=== PATIENT | female | born 1990 | race Caucasian/White ===

== ENCOUNTER → 2017-04-27 | Outpatient (CLI) | payer MEDICAID ==
[~2017-04-27] MED LIST: BUPR4MIS SL; PREN1CHW7 PO; ZOFR8TAB PO
== END ==
LOC: HPND 10:19
PROVIDERS: ATTEND Obstetrics & Gynecology
DX: O44.02 Complete placenta previa NOS or without hemorrhage, second trimester (principal); O99.322 Drug use complicating pregnancy, second trimester; O09.32 Supervision of pregnancy with insufficient antenatal care, second trimester
CPT/HCPCS: 76811; 76817

== ENCOUNTER → 2017-04-28 | Day surgery (SDC) | payer MEDICAID ==
--- NOTE | 2017-04-27 15:21 | MH ---
cc: JALEN MAHER MD DATE OF ADMISSION: 04/28/2017 HISTORY OF PRESENT ILLNESS This patient is a 26-year-old white female, 3, para 1, who is being admitted to [facility] at approximately 21 weeks gestation for cervical incompetence. The patient is well-known to our practice and has been seen throughout her . She had a previous delivery at approximately 35 weeks gestation. We sent her because of this and her opioid addiction to [facility] who today advised that she have cervical cerclage due to incompetence after a pelvic sonogram revealed a cervix of approximately 1.8 cm. We discussed with the patient the risks of the procedure and the failure rates of cerclage in case of advanced effacement of dilatation. PAST MEDICAL HISTORY As described above. The patient has opioid abuse and is presently undergoing Suboxone therapy. She is a smoker and continues to smoke every day. ALLERGIES No known allergies to medication. REVIEW OF SYSTEMS Significant for severe constipation. PHYSICAL EXAMINATION GENERAL: The patient is well-developed, well-nourished, in no acute distress. VITAL SIGNS: Blood pressure 119/60, pulse 70, respirations 12. HEENT: Negative. CHEST: Clear to auscultation. CARDIOVASCULAR: Regular rate. ABDOMEN: Soft. Bowel sounds positive. Uterine fundal height is approximately 21 weeks. PELVIC: The cervix is well-effaced and the vertex appears applied into the pelvis. EXTREMITIES: No clubbing, cyanosis or edema. NEUROPSYCHIATRIC: The patient is oriented x3 and showed no gross neurocranial deficit. IMPRESSION Impression on admission is cervical incompetence. PLAN The plan is to proceed with a cerclage procedure. Jalen Maher MD JSG/BT /2:08 PM /3:05 PM
[~2017-04-28] VITALS: Ht 162.6 cm; Wt 53.5 kg
[~2017-04-28] MED LIST changes: +CHLORHEXIDINE GLUCONATE 2 % 1 PACK (2 CLOTHS) TOPICAL PRN; +DO NOT ADM ANY ANTICOAGULANT DRUGS PRN; +INSULIN HUMAN REGULAR 1,000 UNITS/10 ML VIAL SQ PRN; +LACTATED RINGER'S 1000 ML IV PRN; +METOPROLOL TARTRATE 25 MG TAB PO PRN; +POVIDONE IODINE 5% (ANTISEPSIS KIT) 4 APPLICATIONS EACH NARE PRN; +SODIUM CHLORID 0.9% 500 ML IV PRN; +ceFAZolin 2 GM PREMIX 50 ML IV SCH
[2017-04-28 05:57] VITALS: BP 122/59; PULSE 93; RESP 18; TEMP 98.3; O2SAT 99
[2017-04-28 09:50] VITALS: BP 118/53; PULSE 72; RESP 18; TEMP 97.2; O2SAT 99
--- NOTE | 2017-04-29 15:07 | MP ---
cc: JALEN MAHER MD DATE OF SURGERY: 04/28/2017. PREOPERATIVE DIAGNOSIS: Cervical incompetence. POSTOPERATIVE DIAGNOSIS: Cervical incompetence. OPERATION: Cervical cerclage. SURGEON: Jalen Maher MD. [employer] ADVISOR: None. COMPLICATIONS: None. ANESTHESIA: Spinal. ESTIMATED BLOOD LOSS: 50 cc. FINDINGS: Findings were consistent with a cervix which exhibited some dilatation and a moderate amount of effacement consistent with cervical incompetence. DESCRIPTION OF THE PROCEDURE IN DETAIL: The patient was prepped and draped in the dorsal lithotomy position. A weighted speculum was placed in the posterior vaginal wall. The anterior lip of the cervix was grasped with a forceps and a #1 Prolene was then used in a circumferential manner to close the cervix. It was then tied at the twelve o'clock position. A second suture was placed behind the first one and approximately a centimeter posterior, again placed in a circumferential manner using #1 Prolene and then also tied at the twelve o'clock position. After good hemostasis was noted, the speculum was removed and the patient was returned to the recovery room in stable condition. MD CAMERON Cadet/AZEEM /7:45 AM /2:59 PM
== END | disposition home or self-care (01) ==
LOC: HSDC 05:16
PROVIDERS: ATTEND Obstetrics & Gynecology
DX: O34.32 Maternal care for cervical incompetence, second trimester (principal); O99.332 Smoking (tobacco) complicating pregnancy, second trimester; O99.322 Drug use complicating pregnancy, second trimester; F11.10 Opioid abuse, uncomplicated; F17.200 Nicotine dependence, unspecified, uncomplicated; O26.892 Other specified pregnancy related conditions, second trimester; K59.00 Constipation, unspecified; Z3A.21 21 weeks gestation of pregnancy
CPT/HCPCS: 00948; 59320; J0690; J7120

== ENCOUNTER → 2017-05-11 | Outpatient (CLI) | payer MEDICAID ==
[~2017-05-11] MED LIST changes: -CHLORHEXIDINE GLUCONATE 2 % 1 PACK (2 CLOTHS) TOPICAL PRN; -DO NOT ADM ANY ANTICOAGULANT DRUGS PRN; -INSULIN HUMAN REGULAR 1,000 UNITS/10 ML VIAL SQ PRN; -LACTATED RINGER'S 1000 ML IV PRN; +MAKE250I IM; -METOPROLOL TARTRATE 25 MG TAB PO PRN; -POVIDONE IODINE 5% (ANTISEPSIS KIT) 4 APPLICATIONS EACH NARE PRN; -SODIUM CHLORID 0.9% 500 ML IV PRN; -ceFAZolin 2 GM PREMIX 50 ML IV SCH
== END ==
LOC: HPND 11:58
PROVIDERS: ATTEND Obstetrics & Gynecology
DX: O26.872 Cervical shortening, second trimester (principal); O34.32 Maternal care for cervical incompetence, second trimester; O99.322 Drug use complicating pregnancy, second trimester; Z3A.23 23 weeks gestation of pregnancy
CPT/HCPCS: 76815; 76817; 76825; 76827; 93325

== ENCOUNTER → 2017-06-21 | Outpatient (CLI) | payer MEDICAID ==
[~2017-06-21] MED LIST changes: +IBUP-232 PO; +OXYC-392 PO
== END ==
LOC: HPND 10:49
PROVIDERS: ATTEND Obstetrics & Gynecology
DX: O99.322 Drug use complicating pregnancy, second trimester (principal); O34.32 Maternal care for cervical incompetence, second trimester; O99.332 Smoking (tobacco) complicating pregnancy, second trimester
CPT/HCPCS: 76816

== ENCOUNTER 2017-07-25 07:40 | Inpatient (IN) | payer MEDICAID ==
[~2017-07-25 07:40] MED LIST changes: -IBUP-232 PO; -OXYC-392 PO; -ZOFR8TAB PO
[2017-07-25 08:03] VITALS: BP 118/52; PULSE 75
[2017-07-25 08:05] VITALS: PULSE 78
[2017-07-25 08:15] VITALS: RESP 16
[2017-07-25] MEDS ORDERED: LACTATED RINGER'S 1000 ML INJ 1,000 ML IV ONE (08:27)
[2017-07-25] MEDS ORDERED: CITRIC ACID-SODIUM CITRATE LIQ 30 ML UDC ONE (08:29)
--- NOTE | 2017-07-25 08:49 | PD ---
HPI Chief Complaint Contractions Date Seen: Jul 25, 2017 Time Seen: 08:30 (Jamel Fleming MD R2) Travel History International Travel<30 Days: No Contact w/Intl Traveler<30Days: No (Jamel Fleming MD R2) History of Present Illness HPI 26 yo at 34/3 weeks gestation with h/o current smoking, prior opiate use currently on Suboxone, and previous delivery at 35 weeks due to placental separation presenting for contractions. She started having them at about 4 or 5 this morning. They are very intense and about 10 minutes apart. She denies VB, LOF. Endorses movement. Denies CP/SOB. (Jamel Fleming MD R2) History Past Medical History Medical History: Denies Significant Hx (Jamel Fleming MD R2) Obstetric History Obstetric History First baby delivered at 35 wk due to placental separation (Jamel Fleming MD R2) Past Surgical History Narrative Surgical Cerclage placed 04/29 for shortened cervix (Jamel Fleming MD R2) Family History Family History: Negative (Jamel Fleming MD R2) Social History Alcohol Use: No Tobacco Use: Yes (10 cigarettes per day currently) Substance Abuse: Yes (prior opiate abuse, currently on suboxone) (Jamel Fleming MD R2) Allergies-Medications (Allergen,Severity, Reaction): Coded Allergies: No Known Allergies (Unverified , 07/05/17) Home Meds Active Scripts Vit W/ Ferric Phospha (Vitafol Gummies 3.33-0.333-34.8 mg) 1 Chw Chw, 3 TAB PO DAILY, #90 BOTTLE 11 Refills Prov:Zora Ramesh 03/17/17 Reported Medications Hydroxyprogesterone Caproate Inj ([place]annon Inj) 250 Mg/Ml Inj, 250 MG IM ONCE for , #1 VIAL 0 Refills 06/21/17 Buprenorphine-Naloxone Sublingual Film (Suboxone Sublingual Film) 4-1 Mg Film, 1 FILM SL BID, FILM Unique ID number required: 08/28/16 Review of Systems Except as stated in HPI: all other systems reviewed are Neg (Jamel Fleming MD R2) Physical Exam Vital Signs Date Time Temp Pulse Resp B/P (MAP) Pulse Ox O2 Delivery O2 Flow Rate FiO2 07/25/17 08:05 78 07/25/17 08:03 75 118/52 (74) Narrative GENERAL: Well-nourished, well-developed patient. SKIN: Warm and dry. HEAD: Normocephalic and atraumatic. EYES: No scleral icterus. No injection or drainage. ENT: No nasal drainage noted. Mucous membranes pink. Airway patent. CARDIOVASCULAR: Regular rate and rhythm without murmurs, gallops, or rubs. RESPIRATORY: Breath sounds equal bilaterally. No accessory muscle use. ABDOMEN/GI: Abdomen soft, non-tender, no rebound, no guarding GENITOURINARY: Cervix: midposition Dilation: 7 cm Effacement: 100% Presentation: -1 Membranes: intact Contractions: Every 5min FHT's: Category: 1 Baseline: 120 Reactive: Y Variability: moderate Decels: N EXTREMITIES: No cyanosis or edema. NEUROLOGICAL: Awake and alert. Motor and sensory grossly within normal limits. Normal speech. (Jamel Fleming MD R2) Data Data Vital Signs Reviewed: Yes Orders Orders Ob (2e) Additional Admit Info (07/25/17 08:26) Admit To Inpatient (07/25/17 ) Code Status (07/25/17 08:27) Vital Signs (Adult) .ON ADMISSION (07/25/17 08:27) Activity Oob Ad Shauna (07/25/17 08:27) Heart (07/25/17 08:27) Urinary Catheter Management MAURICE.Q8H (07/25/17 08:27) ^ Preps (07/25/17 08:27) Scd / Marcos / Foot Pump MAURICE.QSHIFT (07/25/17 08:27) ^ Ultrasound For Locatio (07/25/17 08:27) Diet Npo (07/25/17 Breakfast) Lactated Ringer's 1000 Ml Inj (Lr 1000 M (07/25/17 08:27) Lactated Ringer's 1000 Ml Inj (Lr 1000 M (07/25/17 08:57) Citric Acid-Sodium Citrate Liq (Bicitra (07/25/17 10:00) Type And Screen (07/25/17 08:27) Complete Blood Count With Diff (07/25/17 08:27) Urinalysis - C+S If Indicated (07/25/17 08:27) Cefazolin Inj (Ancef Inj) (07/25/17 09:30) Inpatient Certification (07/25/17 ) Citric Acid-Sodium Citrate Liq (Bicitra (07/25/17 08:29) Ob Poc Ultrasound (07/25/17 ) Ob/Psych Drug Screen, Urine (07/25/17 08:48) (Jamel Fleming MD R2) MDM Medical Record Reviewed: Yes Plan 26-year-old at 34/3 weeks gestation presenting in labor #1 IUP Category 1 tracing, reassuring #2 labor 7 cm dilated, [id number] ultrasound showing baby was breech presentation Admit to labor and delivery Proceed to the OR for stat for breech presentation in active labor #3 tobacco abuse Smoking cessation counseling #4 history of opiate use Patient on Suboxone 2 mg daily Obtain urine drug screen on admission (Jamel Fleming MD R2) Attending Attestation Patient seen and evaluated with resident under direct supervision, agree with assessment and plan. (Savage Snowden MD) Jamel Fleming MD R2 Jul 25, 2017 08:49 Savage Snowden MD Jul 25, 2017 09:35
[2017-07-25] MEDS ORDERED: LACTATED RINGER'S 1000 ML INJ 1,000 ML IV SCH ×2 (08:57→14:44)
--- NOTE | 2017-07-25 09:02 | HHI.HP ---
History & Physical H&P HPI HPI Chief Complaint Contractions Date Seen: Jul 25, 2017 Time Seen: 08:30 Travel History International Travel<30 Days: No Contact w/Intl Traveler<30Days: No History of Present Illness HPI 26 yo at 34/3 weeks gestation with h/o current smoking, prior opiate use currently on Suboxone, and previous delivery at 35 weeks due to placental separation presenting for contractions. She started having them at about 4 or 5 this morning. They are very intense and about 10 minutes apart. She denies VB, LOF. Endorses movement. Denies CP/SOB. History (Limited) History Past Medical History Medical History: Denies Significant Hx Obstetric History Obstetric History First baby delivered at 35 wk due to placental separation Past Surgical History Surgical History: Cerclage placed on 04/29 for shortened cervix Family History Family History: Negative Social History Alcohol Use: No Tobacco Use: Yes (10 cigarettes per day currently) Substance Abuse: Yes (prior opiate abuse, currently on suboxone) Allergies-Medications Allergies-Medications (Allergen,Severity, Reaction): Coded Allergies: No Known Allergies (Unverified , 07/05/17) Home Meds Active Scripts Vit W/ Ferric Phospha (Vitafol Gummies 3.33-0.333-34.8 mg) 1 Chw Chw, 3 TAB PO DAILY, #90 BOTTLE 11 Refills Prov:Zora Ramesh 03/17/17 Reported Medications Hydroxyprogesterone Caproate Inj ([place] Inj) 250 Mg/Ml Inj, 250 MG IM ONCE for , #1 VIAL 0 Refills 06/21/17 Buprenorphine-Naloxone Sublingual Film (Suboxone Sublingual Film) 4-1 Mg Film, 1 FILM SL BID, FILM Unique ID number required: 08/28/16 ROS Review of Systems Except as stated in HPI: all other systems reviewed are Neg Physical Exam Physical Exam Vital Signs Date Time Temp Pulse Resp B/P (MAP) Pulse Ox O2 Delivery O2 Flow Rate FiO2 07/25/17 08:05 78 07/25/17 08:03 75 118/52 (74) Narrative GENERAL: Well-nourished, well-developed patient. SKIN: Warm and dry. HEAD: Normocephalic and atraumatic. EYES: No scleral icterus. No injection or drainage. ENT: No nasal drainage noted. Mucous membranes pink. Airway patent. CARDIOVASCULAR: Regular rate and rhythm without murmurs, gallops, or rubs. RESPIRATORY: Breath sounds equal bilaterally. No accessory muscle use. ABDOMEN/GI: Abdomen soft, non-tender, no rebound, no guarding GENITOURINARY: Cervix: midposition Dilation: 7 cm Effacement: 100% Presentation: -1 Membranes: intact Contractions: Every 5min FHT's: Category: 1 Baseline: 120 Reactive: Y Variability: moderate Decels: N EXTREMITIES: No cyanosis or edema. NEUROLOGICAL: Awake and alert. Motor and sensory grossly within normal limits. Normal speech. Data Data Data Vital Signs Reviewed: Yes Orders Orders Ob (2e) Additional Admit Info (07/25/17 08:26) Admit To Inpatient (07/25/17 ) Code Status (07/25/17 08:27) Vital Signs (Adult) .ON ADMISSION (07/25/17 08:27) Activity Oob Ad Shauna (07/25/17 08:27) Heart (07/25/17 08:27) Urinary Catheter Management MAURICE.Q8H (07/25/17 08:27) ^ Preps (07/25/17 08:27) Scd / Marcos / Foot Pump MAURICE.QSHIFT (07/25/17 08:27) ^ Ultrasound For Locatio (07/25/17 08:27) Diet Npo (07/25/17 Breakfast) Lactated Ringer's 1000 Ml Inj (Lr 1000 M (07/25/17 08:27) Lactated Ringer's 1000 Ml Inj (Lr 1000 M (07/25/17 08:57) Citric Acid-Sodium Citrate Liq (Bicitra (07/25/17 10:00) Type And Screen (07/25/17 08:27) Complete Blood Count With Diff (07/25/17 08:27) Urinalysis - C+S If Indicated (07/25/17 08:27) Cefazolin Inj (Ancef Inj) (07/25/17 09:30) Inpatient Certification (07/25/17 ) Citric Acid-Sodium Citrate Liq (Bicitra (07/25/17 08:29) Ob Poc Ultrasound (07/25/17 ) Ob/Psych Drug Screen, Urine (07/25/17 08:48) MDM MDM Medical Record Reviewed: Yes Plan 26-year-old at 34/3 weeks gestation presenting in labor #1 IUP Category 1 tracing, reassuring #2 labor 7 cm dilated, [id number] ultrasound showing baby was breech presentation Admit to labor and delivery Proceed to the OR for stat for breech presentation in active labor #3 tobacco abuse Smoking cessation counseling #4 history of opiate use Patient on Suboxone 2 mg daily Obtain urine drug screen on admission (Jamel Fleming MD R2) H&P Patient seen and evaluated with resident under direct supervision, agree with assessment and plan. (Savage Snowden MD) Jamel Fleming MD R2 Jul 25, 2017 09:02 Savage Snowden MD Jul 25, 2017 09:35
[2017-07-25] MEDS ORDERED: ACETAMINOPHEN 1000 MG/100 ML 100 ML IV ONE (09:38)
[2017-07-25 09:39] LABS: BLOOD GAS BASE EXCESS -0.6 mmol/L (-2-2); BLOOD GAS O2 HGB SATURATION 18 % (90-100); CORD BLOOD GAS HCO3 25 mmol/L (21-29); CORD BLOOD GAS PCO2 56 mmHG (34-78); CORD BLOOD GAS PH 7.28 (7.14-7.42); CORD BLOOD GAS PO2 11 mmHG (3.0-40.0); DRAW SITE CORD BLOOD; STAT NO
--- NOTE | 2017-07-25 09:42 | PD.OP ---
Operative Report Date of Surgery: Jul 25, 2017 Preoperative Diagnosis: The, footling breech, active labor Postoperative Diagnosis: Same, delivered Procedure: Primary lower uterine segment transverse section The patient was taken emergently to the operating room and spinal anesthetic was established. The patient was prepped and draped in dorsal supine position 2 g of Ancef were given. The transverse lower abdominal incision was made with a scalpel and carried out down to level of the fascia which was nicked in the midline and extended bilaterally with scissors. The fascia was from the underlying muscle with sharp and blunt dissection. The muscle was bluntly divided in the midline and the peritoneum was bluntly entered. A transverse hysterotomy was made in the lower uterine segment and membranes were encountered and ruptured with clear fluid noted. The breech was elevated out of the pelvic inlet and carefully delivered through the hysterotomy. With fundal pressure the infant was delivered to the level of the umbilicus. The legs were then delivered by Pinard's maneuver. Continued fundal pressure allowed the passage of the to the level of the scapula. The anterior arm was then carefully splinted across the chest and delivered. With gentle rotation of the trunk the posterior arm delivered. The vertex was maintained in a well flexed position and delivered spontaneously.. Delayed cord clamping was accomplished. The was passed to the waiting team. Cord blood sample was obtained along with cord blood gas. The placenta passed spontaneously with gentle cord traction. The uterine cavity was wiped with a moistened lap sponge. The hysterotomy was closed with a running suture of 0 Monocryl. Second imbricating layer of 0 Monocryl was used over the first. After observing excellent hemostasis normal appearing tubes ovaries and uterus the posterior cul-de-sac and paracolic gutters were evacuated of amniotic fluid and blood. The fascia was then closed with #1 PDS. The subcutaneous tissues tissue was closed with 3-0 Vicryl and the skin with 4-0 subcuticular Vicryl and tissue glue. Estimated blood loss 400 cc Sponge instrument needle counts correct 3. Complications: None Anesthesia: Spinal Surgeon: Savage Snowden Editor Book(s): Dr. Scanlon Resident Surgeon: Dr. Scanlon Operation and Findings: Normal appearing tubes ovaries and uterus, male infant weighing 2045 g with Apgars of 8 and 9 Savage Snowden MD Jul 25, 2017 09:42
[2017-07-25] MEDS ORDERED: OXYTOCIN 30 UNITS-500ML PREMIX 500 ML IV ONE (09:45)
[2017-07-25] MEDS ORDERED: SODIUM CHLORIDE 0.9% FLUSH 10 ML FLUSH IV FLUSH PRN ×3 (09:45→12:15)
[2017-07-25] MEDS ORDERED: BUPRENORPHINE HCL 0.3 MG/1 ML VIAL ONE (09:47)
[2017-07-25] MEDS ORDERED: BUPIVACAINE HCL PF 0.25% 30 ML VIAL ONE (09:47)
[2017-07-25] MEDS ORDERED: DEXMEDETOMIDINE HCL 200 MCG/2 ML VIAL ONE (09:47)
[2017-07-25] MEDS ORDERED: DEXAMETHASONE SOD PHOS PF 10 MG/ML VIAL ONE (09:47)
[2017-07-25] MEDS ORDERED: CITRIC ACID-SODIUM CITRATE LIQ 30 ML UDC PO SCH (10:00)
[2017-07-25 10:28] LABS: AUTOMATED NEUTROPHIL # 14.4 TH/MM3 (1.8-7.7); BASOPHIL # 0.1 TH/MM3 (0-0.2); BASOPHIL % 0.6 % (0.0-2.0); EOSINOPHIL # 0.2 TH/MM3 (0-0.4); EOSINOPHIL % 0.9 % (0.0-4.0); HEMO FLAGS DIFF FINAL; LYMPH % 13.6 % (9.0-44.0); LYMPHOCYTE # 2.6 TH/MM3 (1.0-4.8); MEAN CELL VOLUME 94.6 FL (80.0-100.0); MEAN CORPUSCULAR HEMOGLOBIN 31.6 PG (27.0-34.0); MEAN CORPUSCULAR HGB CONC 33.4 % (32.0-36.0); MONO % 8.2 % (0.0-8.0); NEUT % 76.7 % (16.0-70.0); PLATELET COUNT 156 TH/MM3 (150-450); RED BLOOD COUNT 3.38 MIL/MM3 (4.00-5.30); RED CELL DISTRIBUTION WIDTH 13.1 % (11.6-17.2); WHITE BLOOD COUNT 18.7 TH/MM3 (4.0-11.0)
[2017-07-25] MEDS ORDERED: LORazepam 2 MG/ML VIAL ONE (10:44)
[2017-07-25] MEDS ORDERED: OXYTOCIN 30 UNITS-500ML PREMIX 500 ML ONE (10:48)
[2017-07-25 10:49] LABS: BLOOD, URINE NEG (NEG); COMMENT (UR) CULT NOT INDICATED; CULTURE IF INDICATED CULT NOT INDICATED; GLUCOSE,URINE NEG (NEG); KETONE, URINE NEG (NEG); NITRITE,URINE NEG (NEG); PH, URINE 6.5 (5.0-8.5); SQUAMOUS EPITHELIAL CELL URINE 1 /hpf (0-5); URINE COLOR LIGHT-YELLOW (YELLW/STRAW)
[2017-07-25] MEDS ORDERED: WITCH HAZEL 50%/GLYCERIN 12.5% 40 PAD JAR TOPICAL PRN ×2 (11:00→12:15)
[2017-07-25] MEDS ORDERED: ALUMINUM/MAGNESIUM/SIMETH 30 ML CUP PO PRN ×2 (11:00→12:15)
[2017-07-25] MEDS ORDERED: ONDANSETRON HCL 4 MG/2 ML VIAL IV PUSH PRN (11:00)
[2017-07-25] MEDS ORDERED: KETOROLAC TROMETHAMINE 60 MG/2 ML (IM) VIAL IM PRN (11:00)
[2017-07-25] MEDS ORDERED: IBUPROFEN 600 MG TAB PO PRN (11:00)
[2017-07-25] MEDS ORDERED: OXYTOCIN 30 UNITS-500ML PREMIX 500 ML IV SCH ×2 (11:00→12:30)
[2017-07-25] MEDS ORDERED: DOCUSATE SODIUM 50 MG/SENNA 8.6 MG TAB PO PRN ×2 (11:00→12:15)
[2017-07-25] MEDS ORDERED: BENZOCAINE 20% TOPICAL SPRAY 60 ML CAN TOPICAL PRN ×2 (11:00→12:15)
[2017-07-25] MEDS ORDERED: ACETAMINOPHEN 325 MG TAB PO PRN ×2 (11:00→12:15)
[2017-07-25] MEDS ORDERED: ONDANSETRON ODT 4 MG TAB PO PRN ×2 (11:00→12:15)
[2017-07-25] MEDS ORDERED: ZOLPIDEM TARTRATE 5 MG TAB PO PRN ×2 (11:00→12:15)
[2017-07-25] MEDS ORDERED: SODIUM CHLORIDE 0.9% FLUSH 10 ML FLUSH IV FLUSH SCH ×3 (11:00→21:00)
[2017-07-25] MEDS ORDERED: PROPOFOL 200 MG/20 ML AMP IV ONE (12:00)
[2017-07-25] MEDS ORDERED: ceFAZolin INJ 1,000 MG VIAL IV ONE (12:00)
[2017-07-25] MEDS ORDERED: KETOROLAC TROMETHAMINE 30 MG/ML (IVP) VIAL IV PUSH ONE (12:00)
[2017-07-25] MEDS ORDERED: ONDANSETRON HCL 4 MG/2 ML VIAL IV PUSH ONE (12:00)
[2017-07-25] MEDS ORDERED: OXYTOCIN 10 UNIT/ML AMP IV ONE (12:00)
[2017-07-25] MEDS ORDERED: MORPHINE SULFATE PF 5 MG/10 ML VIAL EPIDURAL ONE (12:00)
[2017-07-25] MEDS ORDERED: MIDAZOLAM HCL 2 MG/2 ML VIAL IV ONE (12:00)
[2017-07-25] MEDS ORDERED: ACETAMINOPHEN 1000 MG/100 ML 100 ML IV SCH ×2 (13:00)
[2017-07-25] MEDS ORDERED: EPIDURAL-DIPHENHYDRAMINE HCL 50 MG CAP PO PRN (13:15)
[2017-07-25] MEDS ORDERED: EPIDURAL-DIPHENHYDRAMINE HCL 50 MG/ML VIAL IV PUSH PRN (13:15)
[2017-07-25] MEDS ORDERED: EPIDURAL-NO SYSTEMIC NARCOTICS PRN (13:15)
[2017-07-25] MEDS ORDERED: LORazepam 2 MG/ML VIAL IV PUSH ONE (13:15)
[2017-07-25] MEDS ORDERED: EPIDURAL-NALOXONE HCL 0.4 MG/ML AMP IV PUSH PRN (13:15)
[2017-07-25] MEDS ORDERED: EPIDURAL-DO NOT ADMINISTER ANTICOAGULANTS PRN (13:15)
[2017-07-25] MEDS ORDERED: KETOROLAC TROMETHAMINE 60 MG/2 ML (IM) VIAL IM ONE (13:45)
[2017-07-25] MEDS ORDERED: MEASLES, MUMPS, RUBELLA VACCINE 0.5 ML VIAL SQ ONE (16:00)
[2017-07-25] MEDS ORDERED: DIPHTH/TETANUS/ACEL PERTUSSIS (BOOSTER) 0.5 ML VIAL/PFS IM ONE (16:00)
[2017-07-25] MEDS: ACETAMINOPHEN 1000 MG/100 ML 100 ML IV SCH ×2 (17:40→23:49)
[2017-07-25] MEDS ORDERED: OXYTOCIN 30 UNITS-500ML PREMIX 500 ML IV PRN (19:45)
[2017-07-25 20:00] VITALS: BP 133/61; PULSE 87; RESP 20; TEMP 97.9
[2017-07-25] MEDS: HYDROmorphone HCL PF 2 MG/ML VIAL IV PUSH PRN ×2 (20:49→23:50)
[2017-07-25] MEDS ORDERED: BUPRENORPHINE SL SCH (21:00)
[2017-07-25] MEDS ORDERED: NALOXONE SL SCH (21:00)
[2017-07-26] VITALS: BP 99/58; PULSE 67; RESP 18; TEMP 98.2
[2017-07-26] MEDS ORDERED: oxyCODONE/ACETAMINOPHEN 10 MG/325 MG TAB PO PRN (01:15)
[2017-07-26 05:30] VITALS: BP 106/65; PULSE 66; RESP 16; TEMP 98.4
[2017-07-26 05:50] LABS: AUTOMATED NEUTROPHIL # 18.9 TH/MM3 (1.8-7.7); BASOPHIL # 0.1 TH/MM3 (0-0.2); BASOPHIL % 0.6 % (0.0-2.0); EOSINOPHIL # 0.1 TH/MM3 (0-0.4); EOSINOPHIL % 0.2 % (0.0-4.0); HEMATOCRIT 30.1 % (35.0-46.0); HEMO FLAGS DIFF FINAL; LYMPH % 12.3 % (9.0-44.0); LYMPHOCYTE # 2.9 TH/MM3 (1.0-4.8); MEAN CELL VOLUME 94.1 FL (80.0-100.0); MEAN CORPUSCULAR HGB CONC 32.9 % (32.0-36.0); MONO % 7.1 % (0.0-8.0); NEUT % 79.8 % (16.0-70.0); PLATELET COUNT 162 TH/MM3 (150-450); RED BLOOD COUNT 3.19 MIL/MM3 (4.00-5.30); RED CELL DISTRIBUTION WIDTH 13.2 % (11.6-17.2); WHITE BLOOD COUNT 23.7 TH/MM3 (4.0-11.0)
[2017-07-26] MEDS: ACETAMINOPHEN 1000 MG/100 ML 100 ML IV SCH (06:08)
[2017-07-26] MEDS: HYDROmorphone HCL PF 2 MG/ML VIAL IV PUSH PRN ×2 (06:09→09:58)
[2017-07-26 08:40] VITALS: BP 108/60; PULSE 60; RESP 18; TEMP 98.3
[2017-07-26] MEDS: IBUPROFEN 600 MG TAB PO PRN ×2 (08:54→17:59)
[2017-07-26] MEDS ORDERED: BUPRENORPHINE/NALOXONE 8 MG/2 MG SUBLINGUAL TAB SL SCH (09:00)
[2017-07-26] MEDS ORDERED: PATIENT OWN NARCOTIC MED 1 PO SCH (09:00)
--- NOTE | 2017-07-26 09:01 | HHI.OB ---
Subjective Remarks 26 year old female s/p stat C/S due to breech presentation at 34/3 wks gestation, POD 1. AFVSS. Patient reports she is feeling well. Bleeding is decreasing and pain is well-controlled. She is formula feeding. Baby is currently in NICU. Ambulating without difficulties. She is tolerating a diet without nausea or vomiting. She has not had a bowel movement. She has not passed gas. Denies chest pain, dysuria, shortness of breath, or calf pain. Objective Vitals/I&O Vital Signs Date Time Temp Pulse Resp B/P (MAP) Pulse Ox O2 Delivery O2 Flow Rate FiO2 07/26/17 05:30 98.4 66 16 106/65 (79) 07/26/17 00:00 98.2 07/26/17 00:00 67 18 99/58 (72) 07/25/17 20:00 97.9 87 20 133/61 (85) Result Diagram: 07/26/17 6669 Objective Remarks GENERAL: Well-nourished, well-developed patient. CARDIOVASCULAR: Regular rate and rhythm without murmurs, gallops, or rubs. RESPIRATORY: Breath sounds equal bilaterally. No accessory muscle use. ABDOMEN/GI: Abdomen soft, non-tender, bowel sounds present. Incision: Clean, dry and intact. Fundus: Firm, non-tender at umbilicus. GENITOURINARY: Light to moderate bleeding. EXTREMITIES: No cyanosis or edema, non-tender, without signs of DVT. Medications and IVs Current Medications Medications (Trade) Dose Ordered Sig/Julio Route Start Time Stop Time Status Last Admin (Dilaudid Pf Inj) 1 mg Q3HR PRN IV PUSH 07/25/17 12:45 07/26/17 10:00 07/26/17 06:09 (NS Flush) 2 ml BID IV FLUSH 07/25/17 12:15 (NS Flush) 2 ml UNSCH PRN IV FLUSH 07/25/17 12:15 (Motrin) 600 mg Q6H PRN PO 07/25/17 12:15 Future hold 07/26/17 08:54 (Americaine 20% Top Spr) 1 spray Q4H PRN TOPICAL 07/25/17 12:15 (Tucks Pads) 1 applic QID PRN TOPICAL 07/25/17 12:15 (Daria-Colace) 2 tab Q12H PRN PO 07/25/17 12:15 (Ambien) 5 mg HS PRN PO 07/25/17 12:15 (Mag-Al Plus Susp Liq) 15 ml Q8H PRN PO 07/25/17 12:15 (Zofran Odt) 4 mg Q6H PRN PO 07/25/17 12:15 Miscellaneous Information NO SYSTEMIC NARCOTICS TO BE GIVEN FO... UNSCH PRN .XX 07/25/17 13:15 07/26/17 13:14 (Narcan Inj) 0.4 mg UNSCH PRN IV PUSH 07/25/17 13:15 07/26/17 13:14 (Benadryl Inj) 25 mg Q6H PRN IV PUSH 07/25/17 13:15 07/26/17 13:14 (Benadryl) 50 mg Q6H PRN PO 07/25/17 13:15 07/26/17 13:14 07/26/17 00:54 Miscellaneous Information ALL NURSING DEPARTMENTS UNSCH PRN .XX 07/25/17 13:15 07/26/17 13:14 Patient Own Medication PT OWN MED: SUBOX... BID SL 07/25/17 21:00 Future Hold (Flu (Quadrivalent) Vaccine Inj) 0.5 ml ONCE ONCE IM 07/26/17 10:00 07/26/17 10:01 (Boostrix Inj) 0.5 ml ONCE ONCE IM 07/26/17 16:00 07/26/17 16:01 (Percocet 10-325 Mg) 1 tab Q6H PRN PO 07/26/17 01:15 07/26/17 08:54 Assessment/Plan Assessment and Plan 26 yo female s/p stat C/S due to breech presentation, POD 1 - AFVSS - Continue routine care - Motrin and Percocet PRN pain, will continue with Suboxone when discharge. Unable to receive while in the hospital. - Encourage OOB - Pelvic rest x 6 wks. Will need 1 week incision check. - Contraception:Nexplanon, will talk with ROLLER STAINER at 6 week appt - Anticipate D/C POD2 or POD 3 Staci Scanlon MD R1 Jul 26, 2017 09:01
[2017-07-26] MEDS ORDERED: INFLUENZA VIRUS VACCINE (QUADRIVALENT) 0.5 ML SYR IM ONE (10:00)
[2017-07-26] MEDS ORDERED: oxyCODONE/ACETAMINOPHEN 5 MG/325 MG TAB PO PRN (13:45)
[2017-07-26] MEDS: oxyCODONE/ACETAMINOPHEN 5 MG/325 MG TAB PO PRN ×3 (13:49→22:54)
[2017-07-26] MEDS: NICOTINE 21 MG/24 HR PATCH T-DERMAL SCH (13:49)
[2017-07-26] MEDS ORDERED: MEASLES, MUMPS, RUBELLA VACCINE 0.5 ML VIAL SQ ONE (16:00)
[2017-07-26] MEDS ORDERED: DIPHTH/TETANUS/ACEL PERTUSSIS (BOOSTER) 0.5 ML VIAL/PFS IM ONE ×2 (16:00)
[2017-07-26 19:54] VITALS: BP 111/58; PULSE 82; RESP 20; TEMP 98.4
[2017-07-27] MEDS: IBUPROFEN 600 MG TAB PO PRN ×2 (02:53→08:20)
[2017-07-27] MEDS: oxyCODONE/ACETAMINOPHEN 5 MG/325 MG TAB PO PRN ×2 (02:53→08:20)
--- NOTE | 2017-07-27 08:17 | HHI.OB ---
Subjective Remarks 26 year old female s/p stat C/S due to breech presentation at 34/3 wks gestation, POD 2. AFVSS. Patient reports she is feeling well. Bleeding is decreasing and pain is controlled with percocet. She is formula feeding. Baby is currently in NICU. Ambulating without difficulties. She is tolerating a diet without nausea or vomiting. She has not had a bowel movement. She has passed gas. Denies chest pain, dysuria, shortness of breath, or calf pain. Objective Vitals/I&O Vital Signs Date Time Temp Pulse Resp B/P (MAP) Pulse Ox O2 Delivery O2 Flow Rate FiO2 07/26/17 19:54 111/58 (75) 07/26/17 19:54 98.4 82 20 07/26/17 14:49 16 07/26/17 08:40 98.3 60 18 108/60 (76) Result Diagram: 07/26/17 0505 Objective Remarks GENERAL: Well-nourished, well-developed patient. CARDIOVASCULAR: Regular rate and rhythm without murmurs, gallops, or rubs. RESPIRATORY: Breath sounds equal bilaterally. No accessory muscle use. ABDOMEN/GI: Abdomen soft, non-tender, bowel sounds present. Incision: Clean, dry and intact. Fundus: Firm, non-tender at umbilicus. GENITOURINARY: Light to moderate bleeding. EXTREMITIES: No cyanosis or edema, non-tender, without signs of DVT. Medications and IVs Current Medications Medications (Trade) Dose Ordered Sig/Julio Route Start Time Stop Time Status Last Admin (NS Flush) 2 ml BID IV FLUSH 07/25/17 12:15 (NS Flush) 2 ml UNSCH PRN IV FLUSH 07/25/17 12:15 (Motrin) 600 mg Q6H PRN PO 07/25/17 12:15 Future hold 07/27/17 02:53 (Americaine 20% Top Spr) 1 spray Q4H PRN TOPICAL 07/25/17 12:15 (Tucks Pads) 1 applic QID PRN TOPICAL 07/25/17 12:15 (Daria-Colace) 2 tab Q12H PRN PO 07/25/17 12:15 (Ambien) 5 mg HS PRN PO 07/25/17 12:15 07/26/17 23:02 (Mag-Al Plus Susp Liq) 15 ml Q8H PRN PO 07/25/17 12:15 (Zofran Odt) 4 mg Q6H PRN PO 07/25/17 12:15 Patient Own Medication PT OWN MED: SUBOX... BID SL 07/25/17 21:00 Future Hold (Percocet 5-325 Mg) 1 tab Q4H PRN PO 07/26/17 13:45 (Percocet 5-325 Mg) 2 tab Q4H PRN PO 07/26/17 13:45 07/27/17 02:53 (Habitrol 21 Mg Patch.24 Hr) 1 patch DAILY T-DERMAL 07/26/17 13:45 07/26/17 13:49 Miscellaneous Information 1 DAILY T-DERMAL 07/27/17 09:00 Assessment/Plan Assessment and Plan 26 yo female s/p stat C/S due to breech presentation, POD 2 - AFVSS - Continue routine care - Motrin and Percocet PRN pain, will continue with Suboxone when discharge. Unable to receive while in the hospital. - Encourage OOB - Pelvic rest x 6 wks. Will need 1 week incision check. - Contraception:Nexplanon, will talk with MARZIPAN MAKER at 6 week appt - Anticipate D/C today or tomorrow depending if she can get her Suboxone medication from Dr. Ella Scanlon,Staci Kearney Jul 27, 2017 08:17
[2017-07-27] MEDS: NICOTINE 21 MG/24 HR PATCH T-DERMAL SCH (08:19)
[2017-07-27 08:30] VITALS: BP 119/64; PULSE 84; RESP 16; TEMP 99.1
[2017-07-27] MEDS ORDERED: REMOVE OLD PATCH T-DERMAL SCH (09:00)
[2017-07-27 09:20] VITALS: RESP 16
[2017-07-27] MEDS ORDERED: IBUP-232 PO (11:00)
[2017-07-27] MEDS ORDERED: OXYC-392 PO (11:00)
--- NOTE | 2017-07-27 11:01 | HHI.DCPOC ---
Discharge Care Plan Diagnosis: (1) delivery delivered (2) Drug abuse Report Symptoms to Your Doctor -Temperature above 100.5 degrees -Redness, of incision or excessive or foul smelling drainage -Unusual pain or calf pain -Increased vaginal bleeding -Painful or difficulty urinating -Feelings of extreme sadness or anxiety after 2 weeks Goals to Promote Your Health * To prevent worsening of your condition and complications * To maintain your health at the optimal level Directions to Meet Your Goals Take your medications as prescribed Follow your dietary instruction Follow activity as directed Ensure plenty of rest for recovery Drink fluids for hydration Keep your appointments as scheduled Take your immunizations and boosters as scheduled If your symptoms worsen call your PCP, if no PCP go to Urgent Care Center or Emergency Room Smoking is Dangerous to Your Health. Avoid second hand smoke Call the 24-hour crisis hotline for domestic abuse at Jamel Fleming MD R2 Jul 27, 2017 11:01
[2017-07-28 10:15] LABS: BATH SALTS (MDPV) UR NEG (NEG); ECSTASY (MDMA) UR NEG (NEG); HEROIN (6-ACETYLMORPHINE) UR NEG (NEG); K2 SPICE UR NEG (NEG); OBMETHADONE UR NEG (NEG); PHENCYCLIDINE URINE NEG (NEG)
[2017-07-28 10:16] LABS: GABAPENTIN UR POS (NEG); HYDROMORPHONE U NEG (NEG)
== END 2017-07-27 11:29 | disposition home or self-care (01) | DRG 765 ==
LOC: HOBED 07:40 → H2EB 08:30 → H1EA 11:19
PROVIDERS: ADMIT Obstetrics & Gynecology; ATTEND Obstetrics & Gynecology
PROC: 10D00Z1 Extraction of Products of Conception, Low, Open Approach (ICD-10-PCS; principal; 2017-07-25)
DX: O60.14X0 Preterm labor third trimester with preterm delivery third trimester, not applicable or unspecified (principal); F11.20 Opioid dependence, uncomplicated; O99.324 Drug use complicating childbirth; O32.1XX0 Maternal care for breech presentation, not applicable or unspecified; F17.210 Nicotine dependence, cigarettes, uncomplicated; O99.334 Smoking (tobacco) complicating childbirth; Z3A.34 34 weeks gestation of pregnancy; Z37.0 Single live birth
CPT/HCPCS: 80307; 81001; 82805; 85025; 86850; 86900; 86901; 88307; G0481; J0131; J0592; J0690; J1100; J1170; J1885; J2060; J2250; J2274; J2405; J2590; J7120; Q0163